=== PATIENT | male | born 1935 | race African-American/Black ===

== ENCOUNTER → 2017-10-05 | Outpatient (CLI) | payer OTHER ==
[~2017-10-05] MED LIST: AMBIEN 10 MG TA10 MG OR; ASPIRIN EC81 M1 OR; CENTRUM SILVER1 EAC2 PO; CENTRUM TABLET1 TAB OR; CYCLOBENZAPRINE10 MG PO; DIAZEPAM 10 MG10 M1 OR; DIOVAN 80 MG TA80 M1 PO; DIOVAN160 MG OR; FISH OIL 1,001000 M2 PO; FISHOIL OR; FUROSEMIDE 40 M40 M1 OR; GLUCOPHAGE XR750 MG OR; LANTUS; LANTUS SOL100 UNIT/1 SQ; LIPITOR80 MG OR; NORTRIPTYLINE H25 M3 PO; NOVOLOG100 UNIT/1; OMEPRAZOLE20 MG OR; OXYCODON-ACETA1 EAC1 PO; OXYCODON-ACETA1 EACH PO; ROXICET 5-5001 EACH OR; TOPROL XL25 MG OR; VITAMIN D-32000 UNIT OR; XYZAL5 MG PO; ZETIA10 MG OR
== END ==
LOC: RAD 13:07
DX: K59.00 Constipation, unspecified (principal); M54.6 Pain in thoracic spine